=== PATIENT | female | born 1995 | race Hispanic/Latino ===

== ENCOUNTER 2017-04-27 18:56 | Day surgery (SDC) | payer SELFPAY ==
[2017-04-27 19:21] VITALS: BMI 30.9
[2017-04-27 19:22] VITALS: BP 112/60; TEMP 98.1
--- NOTE | 2017-04-27 20:08 | PDOC.LDHP ---
Labor and Delivery H&P Chief complaint: contractions HPI: 21 year old female @ 30.3 wks by 9w6d u/s presents with "pressure" since 15:00 this afternoon. She states it comes and goes every 5 minutes. Currently she is not experiencing any pressure; however, the strip does show contractions/irritability. Patient denies any loss of fluid, vaginal discharge, vaginal bleeding, LOWE, RUQ pain, swelling, shortness of breath or chest pain. DARIN is 07/03/2017. Current gestational age (weeks): 30 (30.3 wks) Due date: 07/03/17 Dating criteria: first trimester ultrasound Grav: 3 Para: 1 () OB History Details: GBS bacteruria. Will need penicillin during delivery. Current complications: other (size greater than dates) Past Medical History: None Current medications: pre-monica vitamins Previous surgical history: none Social history: none - Physical Exam Vital signs reviewed and normal: yes General: NAD, resting Heart: RRR Lungs: CTAB Abdomen: gravid Extremeties: no edema FHT: category 1, variable decelerations - Vaginal Exam cm dilated: 0 (Closed, thick, high) Effacement: 0% Station: -3 - OB Labs Blood type: O RH: positive Antibody Screen: negative HIV: negative RPR: negative HEPSAg: negative GBS: positive Rubella: immune Additional Labs: GC/CT negative - Assessment 21 year old at 30.3 wks based on 9w6d U/S that presents with contractions: 1. Contractions - q2-3 minutes since 15:00 - Urinalysis with reflex microscopy; collect via straight cath - Urine culture - VP3 - Evaluate cervical length via transvaginal U/S - Unable to do fibronectin since labor check already performed - Patient checked at approximately 20:00 and was closed, thick and high 2. IUP at 30.3 wks - Routine care - Evaluate for causes of contractions/irritability as stated above - Plan Plan: observation in L&D <Nataly Edmonds - Last Filed: 04/27/17 20:34> <Katherine Mota - Last Filed: 04/28/17 08:24> Allergies/Adverse Reactions: Allergies Allergy/AdvReac Type Severity Reaction Status Date / Time No Known Allergies Allergy Verified 04/27/17 19:20 Attending Addendum - Attending Addendum I personally evaluated the patient and discussed the management with Dr. Edmonds on 04/27/17. I agree with the History, Examination, Assessment and Plan documented above with any addition or exceptions noted below. BV and candidiasis. Contractions improved. Cervical length >4 cm. Discharge home with Flagyl and fluconazole. <Katherine Mota - Last Filed: 04/28/17 08:24>
[2017-04-27 21:10] LABS: Bilirubin Negative (Negative); Blood, Urine Negative (Negative); Glucose, Urine (Dipstick) Negative (Negative); Ketone, Urine Negative (Negative); Nitrite Negative (Negative); Protein, Urine (Dipstick) Negative (Neg-Trace)
--- NOTE | 2017-04-27 21:17 | ULT ---
LIMITED OB ULTRASOUND TRANSVAGINAL/TRANSLABRIAL History: 21-year-old female with pelvic pain for cervical length evaluation. FINDINGS: Cervical length is approximately 5.9 cm. IMPRESSION: Unremarkable cervix with a cervical length of approximately 5.9 cm. POS: [facility]
[2017-04-27] MEDS ORDERED: Fluconazole 100 MG TAB PO ONE (22:15)
[2017-04-27] MEDS ORDERED: Fluconazole 100 MG TAB PO SCH (22:30)
[2017-04-27] MEDS ORDERED: metroNIDAZOLE 500 MG TAB PO SCH (22:30)
[2017-04-28] MEDS ORDERED: metroNIDAZOLE 500 MG TAB PO SCH (09:00)
== END 2017-04-27 22:45 | disposition home or self-care (01) ==
LOC: L&D/OP 18:56
PROVIDERS: ATTEND Family Medicine
DX: O47.03 False labor before 37 completed weeks of gestation, third trimester (principal); O26.843 Uterine size-date discrepancy, third trimester; Z3A.30 30 weeks gestation of pregnancy; Z79.899 Other long term (current) drug therapy
CPT/HCPCS: 51701; 76815; 81003; 87086; 87480; 87510; 87660; 99285

== ENCOUNTER 2017-10-21 22:05 | Inpatient (IN) | payer SELFPAY ==
[2017-10-21 22:44] LABS: Bilirubin Small (Negative); Blood, Urine Negative (Negative); Clarity CLOUDY (Clear); Glucose, Urine (Dipstick) Negative (Negative); Leukocyte Trace (Negative); Nitrite Negative (Negative); Protein, Urine (Dipstick) 30 mg/dL (Neg-Trace); Specific Gravity, Urine 1.037 (1.002-1.036); pH, Urine 6.5 (5.0-9.0)
[2017-10-21 22:45] LABS: Pregnancy Test - Urine (BHCG) Negative (Negative); Pregu Control Background? CLEAR/WHITE (CLR/WHITE); Pregu Control Bar Appear? YES (CONTROL BAR); Specific Gravity 1.037 (1.002-1.036)
[2017-10-21 22:46] LABS: Bacteria/HPF Rare-Few HPF (None Seen); Hyaline Casts/LPF 7-10 HYALINE CAST LPF (0-3 Hyaline); Pathc Cast-AUWi Flag 2.18 (0-2.49); RBC/HPF 0-3 HPF (0-3)
[2017-10-21 22:54] LABS: Yeast-All Forms None Seen HPF (None Seen)
[2017-10-21 22:55] LABS: Crystals/HPF RARE CA OXALATE HPF (Negative)
[2017-10-21 23:02] LABS: #Eosinphils 0.1 thou/uL (0.0-0.7); #Lymphocytes 1.8 thou/uL (1.20-3.40); #Monocytes 0.4 thou/uL (0.11-0.59); #Neutrophils 6.8 thou/uL (1.40-6.50); %Basophils 0.4 % (0.0-1.0); %Eosinophils 1.3 % (0.0-10.0); %Lymphocytes 19.7 % (21.0-51.0); %Monocytes 3.9 % (0.0-10.0); %Neutrophils 74.6 % (42.0-75.0); Hemoglobin 14.5 g/dL (12.0-16.0); Mean Corpuscular HGB CONC 33.3 g/dL (32.0-36.0); Mean Corpuscular Hemoglobin 28.7 pg (27.0-31.0); Mean Corpuscular Volume 86.2 fL (78.0-98.0); Mean Platelet Volume 7.5 fL (7.4-10.4); Platelet Count 239 thou/uL (130-400); Red Blood Cell (RBC) Count 5.05 mill/uL (4.20-5.40); White Blood Cell (WBC) Count 9.1 thou/uL (4.8-10.8)
[2017-10-21 23:22] LABS: ALT (SGPT) 570 U/L (8-55); AST (SGOT) 506 U/L (5-34); Albumin 4.8 g/dL (3.5-5.0); Alkaline Phosphatase 195 U/L (40-150); Anion Gap 14 mmol/L (10-20); BUN (Urea Nitrogen) 11 mg/dL (7.0-18.7); Bilirubin, Total 1.8 mg/dL (0.2-1.2); Calc. Creatinine Clearance 0 mL/min (70-130); Calcium 10.2 mg/dL (7.8-10.44); Carbon Dioxide 26 mmol/L (22-29); Chloride 104 mmol/L (98-107); Estimated GFR-MDRD Greater than 90; Globulin 3.2 g/dL (2.4-3.5); Glucose 135 mg/dL (70-105); Potassium 3.6 mmol/L (3.5-5.1); Sodium 140 mmol/L (136-145)
[2017-10-22] MEDS ORDERED: Ondansetron ODT 8 MG TAB ONE (00:01)
[2017-10-22] MEDS ORDERED: Ondansetron HCl/PF 4 MG/2 ML Vial IVP PRN (02:24)
[2017-10-22] MEDS ORDERED: Ondansetron ODT 4 MG TAB SL PRN (02:24)
[2017-10-22] MEDS: D5 1/2 NS w/20 mEq KCL 1,000 ML IV SCH ×2 (03:05→11:18)
--- NOTE | 2017-10-22 09:34 | ULT ---
PRELIMINARY REPORT/[facility]/EMERGENTY AFTER-HOURS PROCEDURE US Abdomen Limited, Right Upper Quadrant CLINICAL HISTORY: 22 years old, female; Pain and signs and symptoms; Nausea and vomiting; Abdominal pain; Other: Epigas tric pain that radiates to back TECHNIQUE: Real-time ultrasound of the right upper quadrant with image documentation. COMPARISON: No relevant prior studies available. FINDINGS: Liver: Liver demonstrates fatty infiltration without visible focal mass. Gallbladder: Gallbladder demonstrates stones but is without wall thickening or pericholecystic fluid. Common bile duct: Unremarkable as visualized.3 mm. No stones. No dilation. Pancreas: Unremarkable as visualized. Right kidney: No acute findings. 10.9 cm. No stones. No solid mass. No hydronephrosis. IMPRESSION: Cholelithiasis without other findings of cholecystitis. Fatty liver. Thank you for allowing us to participate in the care of your patient. Dictated and Authenticated by: Rey Baker MD 10/22/2017 2:01 AM Central Time ([place] & [place]) FINAL REPORT EMERGENCY AFTER HOURS RIGHT UPPER QUADRANT ULTRASOUND: Date: 10/22/17 HISTORY: Epigastric abdominal pain that leads to the back. Symptoms have been present for 2 days. Nausea and v omiting. IMPRESSION: 1. Hepatomegaly with liver measuring 19.0 cm in craniocaudal dimensions. Mild fatty infiltration of the liver. 2. Cholelithiasis. Common duct is normal in caliber, measuring 0.3 cm. Findings are in agreement with the preliminary report by Ursula. POS: [facility]
[2017-10-22] MEDS ORDERED: Acetaminophen 325 MG TAB PO PRN (10:51)
[2017-10-22] MEDS ORDERED: Guaifenesin DM 100-10/5 ML UDCUP PO PRN (10:51)
--- NOTE | 2017-10-22 11:40 | CON ---
DATE OF CONSULTATION: 10/22/2017 CHIEF COMPLAINT: Abdominal pain. HISTORY: Mrs. Madison Persaud is a 22-year-old female who presents to the ER with a 2 week hist ory of having recurrent abdominal pain. Pain is described as sharp and stabbing, localized to the ep igastrium with radiation to the back. Duration typically lasts 1 hour. The pain has been becoming m uch more frequent over the last 2 weeks. She does have associated nausea and vomiting. She denies t hat there is no history of jaundice. Currently, she is pain free. She is otherwise healthy without any antecedent gastrointestinal issue or illness. PAST MEDICAL HISTORY: 1. G2, P2. 2. No medical illness. 3. No previous surgery. ALLERGIES: None. MEDICATIONS AT HOME: None. SOCIAL HISTORY: The patient is , has 2 children. No tobacco or alcohol usage. FAMILY HISTORY: Negative for any known GI problem, liver disease, GI malignancy. REVIEW OF SYSTEMS: Ten point review of systems did not show any pertinent positive or negatives. PHYSICAL EXAMINATION: VITAL SIGNS: Temperature is 99, blood pressure 94/62, pulse of 66. GENERAL: She is alert, in no distress. HEENT: Shows anicteric sclerae. Oropharynx clear. NECK: Supple. CARDIOVASCULAR: Shows normal S1, S2, regular rate and rhythm. CHEST: Shows normal breath sounds. ABDOMEN: Mildly protuberant, soft, no tenderness, no distention. She has active bowel sounds. No o rganomegaly. EXTREMITIES: Shows no edema. LABORATORY DATA: WBC is 9.1, hemoglobin 14.5, platelet count 239. Electrolytes within normal range, creatinine 0.7, bilirubin 1.8, alkaline phosphatase 195, AST 506, ALT of 570. Abdominal ultrasound performed this morning showed a fatty liver, common duct 3 mm, cholelithiasis wi thout any gallbladder wall thickening or pericholecystic fluid. ASSESSMENT: Symptomatic cholelithiasis with elevation of liver function tests yesterday. However, d uct is only 3 mm on ultrasound, suggests high likelihood that she may have passed the stone. There i s no pancreatitis based on symptoms and labs. RECOMMENDATIONS: 1. No need for preop ERCP at this point. 2. Proceed with cholecystectomy with intraoperative cholangiogram.
[2017-10-22] MEDS: Sodium Chloride 0.9% 1,000 ML IV SCH ×2 (12:10→23:49)
[2017-10-22 12:12] LABS: HBCM Index 0.07 S/CO (0-0.79); HBSAg Index 0.17 S/CO (0-0.99); Hep A IgM AB Non-Reactive (NonReactive); Hep A IgM S/CO 0.21 S/CO (0-0.79); Hep B Surf Ag Non-Reactive S/CO (NonReactive); Hep C IgG Ab Non-Reactive (NonReactive); Hep C Index 0.06 S/CO (0-0.79); Hepatitis B Core IGM Abs Non-Reactive (NonReactive)
[2017-10-22 12:14] LABS: ALT (SGPT) 812 U/L (8-55); AST (SGOT) 684 U/L (5-34); Albumin 4.5 g/dL (3.5-5.0); Alkaline Phosphatase 205 U/L (40-150); Bilirubin, Direct 0.6 mg/dL (0.1-0.3); Bilirubin, Total 1.4 mg/dL (0.2-1.2); Protein, Total 7.1 g/dL (6.0-8.3)
[2017-10-22] MEDS ORDERED: CEFAZOLIN/Water 2 GM/20 ML SYRINGE ONE (13:35)
--- NOTE | 2017-10-22 13:50 | HP ---
REASON FOR ADMISSION: Likely acute cholecystitis. HISTORY OF PRESENT ILLNESS: The patient gives history of epigastric pain which started 2 days back. This was coming and going. The pain was radiating to both her shoulders, more so to the right upper shoulder area. She vomited nearly 6 times from the last 2 days. No diarrhea. Her last bowel movement was yesterday morning. Currently, her pain intensity is around 2-3/10. This was a 10/10 in intensity yesterday evening when she came to the emergency room. PAST MEDICAL/SURGICAL HISTORY: None. No prior abdominal surgeries. CURRENT MEDICATIONS: None. ALLERGIES: No known drug allergies. PERSONAL HISTORY: Does not abuse alcohol or drugs. No history of smoking. The patient is currently a 3-month-old. She has 2 children, lives with her . FAMILY HISTORY: Mother is healthy. She does not know much about her father. CODE STATUS: FULL. Power of firearms instructor is her . REVIEW OF SYSTEMS: The following complete review of systems was negative, unless otherwise mentioned in the HPI or below: Constitutional: Weight loss or gain, ability to conduct usual activities. Skin: Rash, itching. Eyes: Double vision, pain. ENT/Mouth: Nose bleeding, neck stiffness, pain, tenderness. Cardiovascular: Palpitations, dyspnea on exertion, orthopnea. Respiratory: Shortness of breath, wheezing, cough, hemoptysis, fever or night sweats. Gastrointestinal: Poor appetite, abdominal pain, heartburn, nausea, vomiting, constipation, or diarrhea. Genitourinary: Urgency, frequency, dysuria, nocturia. Musculoskeletal: Pain, swelling. Neurologic/Psychiatric: Anxiety, depression. Allergy/Immunologic: Skin rash, bleeding tendency. PHYSICAL EXAMINATION: GENERAL: The patient is a 22-year-old female who is currently not in any acute distress. VITAL SIGNS: Blood pressure 107/66, pulse 52 per minute, respiratory rate 18 per minute, temperature 98.1 degrees Fahrenheit, saturating 97% on room air. NECK: Supple, no elevated JVD. HEENT: Eyes; extraocular muscles intact. Pupils reacting to light. Oral cavity; mucous membranes are moist. No exudates or congestion. CARDIOVASCULAR: S1, S2 heard. Regular rhythm. RESPIRATORY: Air entry 2+ bilateral. No rales or rhonchi. ABDOMEN: Soft, bowel sounds heard. There is mild tenderness in the epigastric area. No rigidity or guarding. EXTREMITIES: No peripheral edema or calf tenderness. VASCULAR SYSTEM: Peripheral pulses 1+ bilateral, no ischemic ulcerations or gangrene. CENTRAL NERVOUS SYSTEM: No gross focal deficits seen. The patient is alert, awake, oriented well. PSYCHIATRIC: The patient's mood is euthymic. No hallucinations or delusions. LABORATORY AND X-RAY FINDINGS: Abdominal ultrasound done shows fatty infiltration of liver, the cholelithiasis. CBD was 3 mm with no stones or dilatation seen. Total bilirubin 1.8, AST 506, ALT 570, alkaline phosphatase 195, albumin 4.8, serum glucose 135. Electrolytes stable. BUN 11, creatinine 0.7. White count of 9, H&H 14 and 43, platelet count 239 with 74% neutrophils, MCV is 86. Acute hepatitis panel was negative. CLINICAL IMPRESSION AND PLAN: The patient will be admitted to medical floor for likely acute cholecystitis. The patient might have had choledocholithiasis and might have passed the stone based on the liver function tests and relief of abdominal pain. She will be kept n.p.o. and gently hydrate with normal saline. Dr. Hernandez has evaluated the patient here on the floor. A surgical consultation with Dr. Vera has been placed. We will continue to closely monitor her on medical floor. consultation will also be requested in view of patient of 3-month-old baby plus the in house meds/ surgery and safety. [facility]PITALGerry
--- NOTE | 2017-10-22 13:50 | CON ---
DATE OF CONSULTATION: 10/22/2017 CHIEF COMPLAINT: Abdominal pain, suspected symptomatic cholelithiasis without cholecystitis. HISTORY OF PRESENT ILLNESS: The patient is a 22-year-old woman, who is G2, P2, approximatel y 3 months , who presents to the ER with a 2-3 week history of recurrent intermittent abdom inal pain, specifically in the right upper quadrant. Patient during this time of pain, will also hav e some pain in her back and nausea and vomiting. Over the last week, the frequency had increased to the point that last night she presented to the emergency department and was evaluated, examined, and noted to have elevated total bilirubin, elevated transaminase, and an ultrasound that showed gallston es without cholecystitis. This morning, the patient was evaluated by Dr. Hernandez, who did not believe t hat the patient needed an ERCP at this time, but did suspect that she would need a cholecystectomy wi th intraoperative cholangiogram. At this time, the patient denies any pain and she has no nausea or vomiting. ALLERGIES: None. CURRENT MEDICATIONS: None. PAST MEDICAL HISTORY: G2, P2. No history of . PAST SURGICAL HISTORY: None. FAMILY HISTORY: Diabetes. SOCIAL HISTORY: The patient denies drug, tobacco, or alcohol use. She is and has 2 children . REVIEW OF SYSTEMS: Ten-point review of systems is negative, unless otherwise stated. PHYSICAL EXAMINATION: VITAL SIGNS: Temperature is 98.8, heart rate 66, blood pressure 96/60, respirations 16, oxygen satur ation 97% on room air. GENERAL: The patient is resting comfortably in bed. She is awake, alert, and oriented x3. HEENT: Unremarkable. LUNGS: Clear to auscultation with good inspiratory and expiratory effort. HEART: Regular rate and rhythm. ABDOMEN: Soft, flat, nontender with active bowel sounds. The patient has a positive Prince sign wit h a very deep palpation and inspiration. EXTREMITIES: Neurovascularly intact x4. There is no pedal edema and has full active range of motion . LABORATORY FINDINGS: White blood cell count 9.1, hemoglobin 14.5, hematocrit 43.5, platelets 239. S odium 140; potassium 3.6; chloride 104; CO2 of 26; BUN 11; creatinine 0.70; glucose 135; total biliru bin initially 1.8, today 1.4; direct bilirubin today 0.6; initial AST 506, today 684; initial ALT 570 , today 812; initial alkaline phosphatase 195, today 205; lipase 28. Urinalysis is unremarkable. RADIOGRAPHIC REPORTS: Abdominal ultrasound shows, 1. Cholelithiasis without other findings of cholecystitis. 2. Fatty liver. ASSESSMENT: Symptomatic cholelithiasis. PLAN: Will be to take the patient to the operating room for a laparoscopic cholecystectomy with intr aoperative cholangiogram. We will repeat her labs in the morning, and if tolerating a diet and pain controlled, she will most likely be able to be discharged tomorrow. The patient and her were agreeable to this plan. The evaluation, examination, laboratory and radiographic findings were disc ussed with Dr. Vera, who was also in agreement with this plan. The patient will be scheduled to go to the OR as soon as it is available. The patient has been n.p.o. since last night.
[2017-10-22] MEDS ORDERED: Bupivacaine/Epinephrine 0.25% 30 ML VIAL ONE (13:57)
[2017-10-22] MEDS ORDERED: Iothalamate Meglumine 60% 50 ML VIAL FS ONE (13:57)
[2017-10-22] MEDS ORDERED: Fentanyl 100 MCG/2 ML VIAL ONE (14:11)
--- NOTE | 2017-10-22 16:27 | RAD ---
XR CHOLANGIOGRAM IN SURGERY 10/22/17 HISTORY: Lap cholecystectomy. COMPARISON: Ultrasound same day. FINDINGS: This single image demonstrates cannulation of the cystic duct. There appears to be a filling defect w ithin the common bile duct just after the cystic duct. This may represent a small stone. Contrast is seen within the duodenum. IMPRESSION: Single filling defect within the common bile duct just distal to the cystic duct insertion may reflec t a small stone. No intrahepatic biliary dilatation. POS: [facility]
[2017-10-22] MEDS ORDERED: traMADol HCl 50 MG TAB PO PRN ×2 (16:35)
[2017-10-22] MEDS: Acetaminophen 325 MG TAB PO SCH ×3 (17:45→23:49)
[2017-10-22] MEDS: Famotidine 20 MG TAB PO SCH (21:22)
--- NOTE | 2017-10-22 21:54 | OP ---
DATE OF PROCEDURE: 10/22/2017 PREOPERATIVE DIAGNOSIS: Acute cholecystitis with cholelithiasis. POSTOPERATIVE DIAGNOSIS: Acute cholecystitis with cholelithiasis. PROCEDURES PERFORMED: Laparoscopic cholecystectomy with intraoperative cholangiogram. SURGEON: Tom Vera DO ANESTHESIA: General endotracheal. ESTIMATED BLOOD LOSS: 50 mL. FLUIDS GIVEN: 1000 mL crystalloids. SPONGE AND INSTRUMENT COUNT: Certified as correct x2. COMPLICATIONS: None apparent at the time of operation. INDICATIONS FOR PROCEDURE: A 22-year-old woman, who is 3 months , presented with epigastric to right upper quadrant abdominal pain. Clinical and radiographic examination was consist ent with acute cholecystitis with cholelithiasis. Laboratory studies were suspicious for choledocholithiasis. Clinical examination however was suggest tatiana of a passed stone. The patient was brought to operating room for cholecystectomy and intraoperative cholangiogram. Findings are consistent with gallbladder in the usual anatomic location, partially encased by omental adhesions. Cholangiography revealed normal ductal anatomy, no filling defects. DESCRIPTION OF PROCEDURE: Informed consent was obtained from the patient, who was brought to operati ng room and placed in supine position. Following general anesthesia, abdomen was sterilely prepped a nd draped in usual fashion. The skin below the umbilicus was infiltrated with 0.25% Marcaine with ep inephrine. A small curvilinear infraumbilical incision was made using a 11 scalpel. Umbilical stalk was grasped with Eric and elevated. Veress needle was inserted through the incision and placed in the peritoneal cavity through which the abdomen was insufflated with 3 liters of CO2 gas. Intraabdo lizzy pressure was noted at 1 mmHg. Following abdominal insufflation, Veress needle was removed and a 5-mm trocar was inserted using the Visiport under laparoscopy. Laparoscopy revealed proper placeme nt of the port, no injuries to underlying structures. Additional laparoscopy revealed gallbladder in the usual anatomic location, partially encased by omental adhesions. Under direct laparoscopy, a 12 -mm epigastric and two 5-mm right lateral subcostal ports were placed after the overlying skin were i nfiltrated with 0.25% Marcaine with epinephrine and appropriate incisions were made. The patient was placed in the reverse Trendelenburg position, rotated to her left. I introduced a Prestige grasper through the right lateral subcostal port grasping the fundus of the gallbladder, which was elevated c ephalad. I then used Maryland dissector with cautery to take down omental adhesions. A second Prest ige grasper was introduced through the right medial subcostal port grasping the Natasha's pouch, whi ch was retracted laterally. I then used Maryland dissector to carefully dissect the cystic duct from surrounding structures. I applied one clip at the junction of the cystic duct and gallbladder. I i ntroduced a cholangiocatheter in the right upper quadrant. I then opened the cystic duct using Endo Shear proximal to the securing clip. The cholangiocatheter was flushed with saline to remove any air. It was then inserted into the cysti c ductal lumen securing this with a single clip. Cholangiography was completed using 13 mL of full-s trength Conray contrast. Total fluoroscopy time was 7 seconds. Findings was consistent with normal ductal anatomy, no filling defects noted. At the completion of the cholangiography, the securing cli p was removed and the cholangiocatheter was removed from the peritoneal cavity. The cystic duct was then divided between clips, applying two clips proximally. The cystic artery was dissected free from surrounding structures and divided between clips, again I applied two clips proximally. The gallbla dder itself was removed from the liver bed using cautery. It was delivered off the abdominal cavity using EndoCatch. The gallbladder fossa was oozy of venous blood. I attempted to achieve hemostasis with cautery with minimum success. I then applied 1 x 2-inch piece of Fibrillar to achieve immediate hemostasis. Operative site was irrigated clear with saline. All clips were in place. No bile stai ns present. Finding no other pathology, laparoscopy was terminated. Fascia of the epigastric port w as closed using 0 Vicryl suture and Endo closure device under laparoscopy. The abdomen was desufflat ed. All ports and instruments were removed and accounted for. Skin incision was then closed using 4 -0 Monocryl suture in subcuticular fashion. Dermabond was applied over the incisions. The patient t olerated this operation without any apparent complication and was returned to the recovery room in sa tisfactory condition.
[2017-10-23 04:44] LABS: #Lymphocytes 1.5 thou/uL (1.20-3.40); #Monocytes 0.5 thou/uL (0.11-0.59); #Neutrophils 6.4 thou/uL (1.40-6.50); %Basophils 0.3 % (0.0-1.0); %Eosinophils 0.3 % (0.0-10.0); %Lymphocytes 17.6 % (21.0-51.0); %Monocytes 5.8 % (0.0-10.0); Hemoglobin 12.7 g/dL (12.0-16.0); Mean Corpuscular HGB CONC 32.5 g/dL (32.0-36.0); Mean Corpuscular Hemoglobin 28.4 pg (27.0-31.0); Mean Corpuscular Volume 87.4 fL (78.0-98.0); Mean Platelet Volume 7.7 fL (7.4-10.4); Platelet Count 213 thou/uL (130-400); RBC Distribution Width 13.2 % (11.5-14.5); Red Blood Cell (RBC) Count 4.47 mill/uL (4.20-5.40); White Blood Cell (WBC) Count 8.5 thou/uL (4.8-10.8)
[2017-10-23 05:07] LABS: ALT (SGPT) 475 U/L (8-55); AST (SGOT) 210 U/L (5-34); Albumin 3.9 g/dL (3.5-5.0); Alkaline Phosphatase 161 U/L (40-150); Anion Gap 16 mmol/L (10-20); BUN (Urea Nitrogen) 5 mg/dL (7.0-18.7); Bilirubin, Total 0.8 mg/dL (0.2-1.2); Calc. Creatinine Clearance 157 mL/min (70-130); Carbon Dioxide 23 mmol/L (22-29); Chloride 108 mmol/L (98-107); Estimated GFR-MDRD Greater than 90; Globulin 2.6 g/dL (2.4-3.5); Glucose 105 mg/dL (70-105); Potassium 3.8 mmol/L (3.5-5.1); Protein, Total 6.5 g/dL (6.0-8.3); Sodium 143 mmol/L (136-145)
[2017-10-23] MEDS: Acetaminophen 325 MG TAB PO SCH (05:43)
[2017-10-23 08:04] VITALS: BP 152/75; TEMP 97.9
[2017-10-23] MEDS: Sodium Chloride 0.9% 1,000 ML IV SCH (08:19)
[2017-10-23] MEDS: Famotidine 20 MG TAB PO SCH (08:20)
[2017-10-23] MEDS ORDERED: Enoxaparin Sodium 40 MG/0.4 ML SYRINGE SC SCH (09:00)
--- NOTE | 2017-10-23 11:02 | PRG ---
DATE OF SERVICE: 10/23/2017 SUBJECTIVE: This is a 22-year-old female postop day #1 status post laparoscopic cholecystectomy with IOC for acute cholecystitis with cholelithiasis. There were no acute overnight events. This mornin g, the patient has had a general diet and vocalizes no complaint upon my evaluation. OBJECTIVE: VITAL SIGNS: Temperature 97.9, pulse 74, respiration 20, O2 sat 98% on room air, blood pressure 123/ 77. GENERAL: Well-developed young female in no acute distress, resting in bed. PULMONARY: Normal work of breathing. Symmetric rise. CARDIOVASCULAR: Regular rate and rhythm. GASTROINTESTINAL: Laparoscopic incisions are clean, dry, and intact. The abdomen is soft, nontender , nondistended. MUSCULOSKELETAL: Moves all extremities x4. NEUROLOGIC: No focal deficit noted. LABORATORY DATA: WBC 8.5, hemoglobin 12.7, hematocrit 39.0, platelet count 213. Sodium 143, potassi um 3.8, chloride 108, carbon dioxide 23, BUN 5, creatinine 0.71. Total bilirubin 0.8, AST 210, ALT 4 75, alkaline phosphatase 161. ASSESSMENT: 1. Postop day #1 status post laparoscopic cholecystectomy with intraoperative cholangiogram. 2. Acute cholecystitis with cholelithiasis. PLAN: The patient is stable for discharge from a surgical standpoint. Pain is controlled with p.o. analgesics. She is tolerating a general diet. She should follow up with Dr. Vera in 2 weeks with a CMP prior to her appointment. This information has been placed in her discharge packet. Exam and evaluation was done with the assistance of a human resource manager. The patient was discussed with Dr. Vera.
--- NOTE | 2017-10-23 12:22 | PDOC.PN ---
- Subjective Encounter Start Date: 10/23/17 Encounter Start Time: 07:30 Subjective: feels better, is passing flatus no bm yet -: no abd pain - Objective Resuscitation Status: Resuscitation Status FULL:Full Resuscitation MAR Reviewed: Yes Vital Signs & Weight: Vital Signs (12 hours) Temp Pulse Resp BP Pulse Ox 10/23/17 08:03 97.9 F 74 20 152/75 H 96 10/23/17 08:00 97.9 F 74 20 10/23/17 07:45 98.0 F 57 L 18 123/77 98 10/23/17 05:00 98.4 F 66 18 110/69 97 10/23/17 01:36 98.4 F 56 L 18 108/68 96 Weight Weight 176 lb 5.917 oz I&O: 10/22/17 10/23/17 10/24/17 06:59 06:59 06:59 Intake Total 1700 Balance 1700 Result Diagrams: 10/23/17 04:10 10/23/17 04:10 Phys Exam - Physical Examination HEENT: PERRLA, moist MMs Neck: no JVD, supple Respiratory: no wheezing, no rales Cardiovascular: RRR, no significant murmur Gastrointestinal: soft, non-tender, positive bowel sounds Musculoskeletal: no edema, pulses present Neurological: non-focal, moves all 4 limbs Psychiatric: normal affect, A&O x 3 Dx/Plan (1) Acute cholecystitis Code(s): K81.0 - ACUTE CHOLECYSTITIS Status: Acute (2) Elevated LFTs Code(s): R94.5 - ABNORMAL RESULTS OF LIVER FUNCTION STUDIES Status: Acute - Plan s/p lap cholecystectomy pod #1 -: hemostable -: lft's are trending down -: dc pt home * .
--- NOTE | 2017-10-23 23:46 | DIS ---
DATE OF ADMISSION: 10/22/2017 DATE OF DISCHARGE: 10/23/2017 DISCHARGE DISPOSITION: To home. PRIMARY DISCHARGE DIAGNOSES: Acute cholecystitis, status post laparoscopic cholecystectomy, elevated LFTs are slowly trending down. PROCEDURES DONE DURING HOSPITALIZATION: Patient has had abdominal ultrasound done, which showed cholelithiasis and fatty liver. Patient has had laparoscopic cholecystectomy done by Dr. Vera on 10/22/2017. AST 506 is trending down to 210. ALT 570 on admission trending down to 475, alkaline phosphatase 195 trending down to 161, total bilirubin was 1.8 on admission, on discharge is 0.8, lipase is 28. Acute hepatitis panel was negative. INPATIENT CONSULTS: Dr. Hernandez for gastroenterology, Dr. Vera for general surgery. BRIEF COURSE DURING HOSPITALIZATION: Patient initially came in with complaints of epigastric pain radiating to both shoulders. She also had severe nausea and vomiting from the last 2 days. Her initial LFTs were elevated. Gastroenterology consultation was requested. Patient had upper abdominal ultrasound done, which showed evidence of cholelithiasis. Patient also had elevated total bilirubin and likely might have passed a stone with choledocholithiasis. Patient had laparoscopic cholecystectomy done by Dr. Vera and her LFTs are trending down. She will need a repeat liver function test done in 2 weeks and to follow up with Dr. Vera. The patient is hemodynamically stable and will be shortly and has been cleared by General Surgery for discharge. Please see a face to face documentation on [employer] for the day of discharge. [facility]
== END 2017-10-23 10:33 | disposition home or self-care (01) | DRG 419 ==
LOC: ERS 22:05 → T4-B 10-22 02:13
PROVIDERS: ADMIT Hospitalist; ATTEND Hospitalist
PROC: 0FT44ZZ Resection of Gallbladder, Percutaneous Endoscopic Approach (ICD-10-PCS; principal; 2017-10-22)
PROC: BF10YZZ Fluoroscopy of Bile Ducts using Other Contrast (ICD-10-PCS; 2017-10-22)
DX: K80.00 Calculus of gallbladder with acute cholecystitis without obstruction (principal); K76.0 Fatty (change of) liver, not elsewhere classified
CPT/HCPCS: 36415; 47532; 76705; 80053; 80074; 80076; 81003; 81015; 81025; 83690; 85025; 88304; 93005; 96360; J1610; J1650; J2270; J3010; Q9961